=== PATIENT | female | born 1975 | race Caucasian/White ===

== ENCOUNTER 2017-09-21 16:28 | Outpatient (CLI) | payer OTHER | END 2017-09-21 16:30 | LOC: LABRHC 16:28 | PROVIDERS: ATTEND Physician Assistant | DX: R30.0 Dysuria (principal) | CPT/HCPCS: 87086 ==

== ENCOUNTER 2017-09-25 08:03 | Outpatient (CLI) | payer OTHER ==
--- NOTE | 2017-09-25 09:17 | Diagnostic Imaging Report ---
IRAJ VYAS [facility] [id number] [facility] [address] [address] Report Submission Date: Sep 25, 2017 9:15:17 AM CDT Patient Study Name: MARIE MOTLEY Date: Sep 25, 2017 8:23:02 AM CDT Modality Type: US Gender: O Description: : Institution: [facility] Physician: IRAJ VYAS Accession: A Examination: Ultrasound gallbladder History: Epigastric discomfort Findings: Sonographic evaluation of the right upper quadrant demonstrates the gallbladder without stones or sludge. Gallbladder wall measures 1.4 mm. Common bile duct measures 5.8 mm. No intrahepatic biliary dilation. Liver demonstrates increased echogenicity. No mass or cyst. Normal flow on color analysis. Normal portal vein Doppler waveform. Right kidney measures 11.8 cm in length. No cortical mass or cyst. No hydronephrosis. Pancreatic region without gross irregularity. Impression: No gallstone or obstruction. Fatty liver. Electronically signed on Sep 25, 2017 9:15:17 AM CDT by: Armen FLORES
[2017-09-25 09:26] LABS: eGFR (African) > 60; eGFR (Non-African) > 60
== END 2017-09-25 08:04 ==
LOC: RAD 08:03
PROVIDERS: ATTEND Physician Assistant
DX: R10.11 Right upper quadrant pain (principal)
CPT/HCPCS: 36415; 76705; 80053; 84443

== ENCOUNTER 2018-05-20 14:32 | Outpatient (CLI) | payer OTHER | END 2018-05-20 14:33 | LOC: LABRHC 14:32 → SUPCPDRO 14:32 → LABRHC 14:33 | PROVIDERS: ATTEND Family Medicine | DX: N39.0 Urinary tract infection, site not specified (principal) | CPT/HCPCS: 87086 ==